=== PATIENT | male | born 1990 | race Two or more races ===

== ENCOUNTER 2023-12-05 14:13 | Emergency (ER) | payer SELFPAY ==
[~2023-12-05] VITALS: Ht 185.4 cm; Wt 104.3 kg
[2023-12-05] MEDS: TDAP DIPH,PERTUSS,TET VAC/PF 0.5 ML DISP.SYRIN IM ONE (15:00)
[2023-12-05] MEDS: LIDOCAINE HCL 2% 20 ML VIAL TP ONE (15:00)
[2023-12-05] MEDS: SILVER NITRATE APPLICATOR STICK EACH TP ONE (15:00)
[2023-12-05] MEDS ORDERED: LIDOCAINE HCL 2% 20 ML VIAL ONE (15:04)
[2023-12-05] MEDS ORDERED: BACITRACIN ZINC OINT 15 GM TUBE ONE (15:40)
[2023-12-05] MEDS ORDERED: TDAP DIPH,PERTUSS,TET VAC/PF 0.5 ML DISP.SYRIN IM ONE (16:26)
[2023-12-05 16:33] VITALS: BP 110/73; O2SAT 99
[2023-12-05] MEDS: BACITRACIN ZINC OINT 15 GM TUBE TOP ONE (16:33)
== END 2023-12-05 16:41 | disposition home or self-care (01) ==
LOC: ER 14:29
DX: L92.9 Granulomatous disorder of the skin and subcutaneous tissue, unspecified (principal)
CPT/HCPCS: 11420; 88312; 88342; 88341; 88305; 90715; 90471; 99284; J3490; A4606; A4663